=== PATIENT | male | born 2000 | race Caucasian/White ===

== ENCOUNTER 2023-11-15 11:31 | Emergency (ER) | payer MEDICAID ==
[~2023-11-15] VITALS: Ht 172.7 cm; Wt 68.0 kg
[2023-11-15 11:37] VITALS: BP 101/59; PULSE 64; RESP 16; TEMP 98.4; O2SAT 96
[2023-11-15] MEDS ORDERED: AMOX-1230 PO (12:38)
[2023-11-15] MEDS ORDERED: BACTO TP (12:38)
[2023-11-15] MEDS: IBUPROFEN 600 MG TAB PO ONE (12:57)
== END 2023-11-15 13:20 | disposition home or self-care (01) ==
LOC: MED 11:31
DX: S01.25XA Open bite of nose, initial encounter (principal); Z98.890 Other specified postprocedural states; Z79.2 Long term (current) use of antibiotics; W55.01XA Bitten by cat, initial encounter; Y93.89 Activity, other specified; Y92.89 Other specified places as the place of occurrence of the external cause; Y99.8 Other external cause status
CPT/HCPCS: 90471; 90715; 99283